=== PATIENT | male | born 1980 | race Caucasian/White ===

== ENCOUNTER 2016-10-15 08:22 | Emergency (ER) | payer OTHER ==
[2016-10-15 08:34] VITALS: BP 133/90
--- NOTE | 2016-10-15 08:43 | UC ---
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 [ End ] - History of Current Complaint Chief Complaint: Cortes Stated Complaint: RIGHT EYE COMPLAINT Time Seen by Provider: 10/15/16 08:42 Hx Obtained From: Patient Onset/Duration: Gradual Onset Timing: Constant Severity Initially: Moderate Severity Currently: Moderate Location of Injury: Eye Lid (upper) Character: Dull Aggravating Factor(s): Nothing Alleviating Factor(s): Nothing Associated Signs And Symptoms: Positive: Negative - Risk Factors Penetrating Injury Risk Factor: Negative Globe Rupture Risk Factors: Negative Acute Glaucoma Risk Factors: Negative - Allergies/Home Medications Allergies/Adverse Reactions: Allergies Allergy/AdvReac Type Severity Reaction Status Date / Time No Known Allergies Allergy Verified 10/15/16 08:34 PMH/Surg Hx/FS Hx/Imm Hx Previously Healthy: Yes Endocrine History Of: Denies: Thyroid Disease Cardiovascular History Of: Denies: Hypertension - Surgical History Surgical History: None - Family History Known Family History: Positive: None - Social History Occupation: Employed Full-time Lives: With Family Alcohol Use: Occasionally Substance Use Type: Marijuana Substance Use Comment - Amount & Last Used: Occasionally Smoking Status (MU): Never Smoked Tobacco - Immunization History Most Recent Influenza Vaccination: Not the Season Most Recent Tetanus Shot: May 2014 Review of Systems Constitutional: Negative Skin: Negative Eyes: Other - eye lid swelling ENT: Negative Respiratory: Negative Cardiovascular: Negative Gastrointestinal: Negative Genitourinary: Negative Motor: Negative Neurovascular: Negative Musculoskeletal: Negative Neurological: Negative Psychological: Negative All Other Systems Reviewed And Are Negative: Yes Physical Exam Triage Information Reviewed: Yes Appearance: Well-Appearing, No Pain Distress, Well-Nourished Vital Signs: Initial Vital Signs Temp 98.1 F 10/15/16 08:26 Pulse 72 10/15/16 08:26 Resp 18 10/15/16 08:26 BP 133/90 10/15/16 08:26 Vital Signs Reviewed: Yes Eye Exam: Other - EOMI and PERRLA Eyes: Positive: Conjunctiva Clear, Other: - upper eye lid swelling left eye. no discharge. no surrounding erythema ENT Exam: Normal Dental Exam: Normal Neck exam: Normal Respiratory Exam: Normal Cardiovascular Exam: Normal Abdominal Exam: Normal Musculoskeletal Exam: Normal Neurological Exam: Normal Psychological Exam: Normal Skin Exam: Normal Eye Complaint Course/Dx - Course Course Of Treatment: Spoke with him about histoplasmosis and other andrew concerns being surrounded by pigeons and their droppings at work and may bring this up with work . I advise going to Optho and f/u with PCP for further work up although it does not appear to be any systemic concerns at this time - Differential Dx/Diagnosis Differential Diagnosis/HQI/PQRI: Conjunctivitis, Other - blepharitis Provider Diagnoses: Blepharitis left eye Discharge - Discharge Plan Condition: Good Disposition: HOME Prescriptions: Azithromycin 100 MG/5 ML SUSP* [Zithromax SUSP* 100 MG/5 ML] 1 mg PO DAILY #1 btl Patient Education Materials: Blepharitis (ED) Referrals: No Primary Care Phys,NOPCP [Primary Care Provider] - 3 Days Ariel Farias [Medical Doctor] - 5 Days (Opthomology referral if your symptoms are not resolved ) Additional Instructions: As we discussed the pigeons present a potential source for infection and please see the specialist if your symptoms persist for your eye
== END 2016-10-15 09:12 | disposition home or self-care (01) ==
LOC: UCCORT 08:22
DX: H01.004 Unspecified blepharitis left upper eyelid (principal); F12.90 Cannabis use, unspecified, uncomplicated
CPT/HCPCS: 99212; G0463

== ENCOUNTER 2017-10-03 12:16 | Emergency (ER) | payer BC, OTHER ==
[2017-10-03 12:57] VITALS: BP 137/85
[2017-10-03] MEDS ORDERED: DOXYcycline CAP(*) 100 MG PO ONE (13:07)
--- NOTE | 2017-10-03 13:14 | ED ---
Skin Complaint - HPI Summary HPI Summary: 37 yr old male with tick bite to the right lateral hip area. The patient was out for a walk yesterday, and after the walk he pulled a tick off of his right hip area. No engorgement of the tick. No bulls eye rash to skin. No other complaints. - History of Current Complaint Chief Complaint: UCSkin Time Seen by Provider: 10/03/17 13:01 Stated Complaint: TICK BITE Pain Intensity: 0 - Allergy/Home Medications Allergies/Adverse Reactions: Allergies Allergy/AdvReac Type Severity Reaction Status Date / Time No Known Allergies Allergy Verified 10/03/17 12:52 Home Medications: Home Medications NK [No Home Medications Reported] 10/03/17 [History Confirmed 10/03/17] PMH/Surg Hx/FS Hx/Imm Hx Endocrine/Hematology History: Denies: Hx Thyroid Disease Cardiovascular History: Denies: Hx Hypertension Infectious Disease History: No Infectious Disease History: Denies: Traveled Outside the [place] in Last 30 Days - Family History Known Family History: Positive: None - Social History Alcohol Use: Occasionally Substance Use Type: Reports: Marijuana Substance Use Comment - Amount & Last Used: Occasionally- last used on weekend Smoking Status (MU): Never Smoked Tobacco Review of Systems Positive: Other - tick bite All Other Systems Reviewed And Are Negative: Yes Physical Exam Triage Information Reviewed: Yes Vital Signs On Initial Exam: Initial Vitals Temp Pulse Resp BP Pulse Ox 97.8 F 50 18 137/85 100 10/03/17 12:52 10/03/17 12:52 10/03/17 12:52 10/03/17 12:52 10/03/17 12:52 Vital Signs Reviewed: Yes Appearance: Positive: Well-Appearing, No Pain Distress Skin: Positive: Warm, Other - small bite michelle without any appreciable redness or swelling over the right hip area. Head/Face: Positive: Normal Head/Face Inspection ENT: Positive: Normal ENT inspection Respiratory/Lung Sounds: Positive: Clear to Auscultation, Breath Sounds Present Cardiovascular: Positive: RRR. Negative: Murmur Abdomen Description: Positive: Nontender Musculoskeletal: Positive: Strength/ROM Intact Neurological: Positive: Sensory/Motor Intact, Alert, Oriented to Person Place, Time, CN Intact II-III - Yulissa Coma Scale Best Eye Response: 4 - Spontaneous Best Motor Response: 6 - Obeys Commands Best Verbal Response: 5 - Oriented Coma Scale Total: 15 Diagnostics - Vital Signs Vital Signs Temp Pulse Resp BP Pulse Ox 10/03/17 12:52 97.8 F 50 18 137/85 100 - Laboratory Lab Statement: Any lab studies that have been ordered have been reviewed, and results considered in the medical decision making process. Course/Dx - Course Course Of Treatment: 37 yr old who pulled off tick. he would like the prophylaxis. Doxy 200 mg ordered. - Diagnoses Provider Diagnoses: Tick bite Discharge - Sign-Out/Discharge Documenting (check all that apply): Discharge/Admit/Transfer - Discharge Plan Condition: Good Disposition: HOME Patient Education Materials: Tick Bite (ED) Referrals: [facility] [[facility]] No Primary Care Phys,NOPCP [Primary Care Provider] - - Billing Disposition and Condition Condition: GOOD Disposition: HOME
== END 2017-10-03 13:18 | disposition home or self-care (01) ==
LOC: UCCORT 12:16
DX: S70.361A Insect bite (nonvenomous), right thigh, initial encounter (principal); W57.XXXA Bitten or stung by nonvenomous insect and other nonvenomous arthropods, initial encounter
CPT/HCPCS: 99211; A9270-GY; G0463

== ENCOUNTER 2018-09-17 07:53 | Emergency (ER) | payer BC ==
[2018-09-17 08:19] VITALS: BP 123/73
--- NOTE | 2018-09-17 08:38 | UC ---
Skin Complaint HPI - HPI Summary HPI Summary: 38 yo male s/p tick removal from right abdomen yesterday tick did not appear engorged - History of Current Complaint Chief Complaint: UCSkin Time Seen by Provider: 09/17/18 08:29 Stated Complaint: TICK BITE Hx Obtained From: Patient Onset/Duration: Gradual Onset, Lasting Hours Timing: Constant Current Severity: Mild Pain Intensity: 0 Pain Scale Used: 0-10 Numeric Location: Other - abd Aggravating Factor(s): Nothing Alleviating Factor(s): Nothing Associated Signs & Symptoms: Positive: Negative - Allergy/Home Medications Allergies/Adverse Reactions: Allergies Allergy/AdvReac Type Severity Reaction Status Date / Time No Known Allergies Allergy Verified 09/17/18 08:15 Home Medications: Home Medications Multivitamin [Multivitamins] 1 cap PO DAILY 09/17/18 [History Confirmed 09/17/18 ] PMH/Surg Hx/FS Hx/Imm Hx Previously Healthy: Yes - Surgical History Surgical History: None - Family History Known Family History: Positive: Non-Contributory - Social History Alcohol Use: Occasionally Substance Use Type: Marijuana Substance Use Comment - Amount & Last Used: occasional Smoking Status (MU): Never Smoked Tobacco - Immunization History Most Recent Influenza Vaccination: Not the Season Most Recent Tetanus Shot: May 2014 Review of Systems All Other Systems Reviewed And Are Negative: Yes Constitutional: Positive: Negative Skin: Positive: Negative Eyes: Positive: Negative ENT: Positive: Negative Respiratory: Positive: Negative Cardiovascular: Positive: Negative Gastrointestinal: Positive: Negative Genitourinary: Positive: Negative Motor: Positive: Negative Neurovascular: Positive: Negative Musculoskeletal: Positive: Negative Neurological: Positive: Negative Psychological: Positive: Negative Physical Exam Triage Information Reviewed: Yes Appearance: Well-Appearing, No Pain Distress, Well-Nourished Vital Signs: Initial Vital Signs Temp 97.8 F 09/17/18 08:12 Pulse 54 09/17/18 08:12 Resp 15 09/17/18 08:12 BP 123/73 09/17/18 08:12 Pulse Ox 99 09/17/18 08:12 Vital Signs Reviewed: Yes Eyes: Positive: Conjunctiva Clear ENT: Positive: Hearing grossly normal. Negative: Nasal congestion, Nasal drainage, Trismus, Muffled voice, Hoarse voice Neck: Positive: Supple, Nontender, No Lymphadenopathy Respiratory: Positive: Lungs clear, Normal breath sounds, No respiratory distress, No accessory muscle use Cardiovascular: Positive: RRR, No Murmur, Pulses Normal Musculoskeletal: Positive: ROM Intact, No Edema Neurological: Positive: Alert Psychological Exam: Normal Skin Exam: Other - see image Images Front/Back of Body, Lg ([place]): 1 - tick bite Course/Dx - Diagnoses Provider Diagnosis: Tick bite of abdomen Discharge - Sign-Out/Discharge Documenting (check all that apply): Patient Departure All imaging exams completed and their final reports reviewed: No Studies - Discharge Plan Condition: Stable Disposition: HOME Prescriptions: DOXYcycline CAP(*) [DOXYcycline 100MG CAP(*)] 200 mg PO BID #2 cap Patient Education Materials: Tick Bite (ED) Referrals: No Primary Care Phys,NOPCP [Primary Care Provider] - Additional Instructions: call for any questions return for any problems - Billing Disposition and Condition Condition: STABLE Disposition: Home
== END 2018-09-17 08:43 | disposition home or self-care (01) ==
LOC: UCCORT 07:53
DX: S30.861A Insect bite (nonvenomous) of abdominal wall, initial encounter (principal); W57.XXXA Bitten or stung by nonvenomous insect and other nonvenomous arthropods, initial encounter; Y92.9 Unspecified place or not applicable
CPT/HCPCS: 99212; G0463

== ENCOUNTER 2018-10-23 07:07 | Emergency (ER) | payer BC ==
[2018-10-23 07:22] VITALS: BP 148/88
--- NOTE | 2018-10-23 07:39 | UC ---
Ear Complaint HPI - HPI Summary HPI Summary: 38 yo with decreased hearing, bilateral otorrhea, ear pain and URI symptoms x 1 week generally healthy no ear problems since a child - History of Current Complaint Chief Complaint: UCEar Stated Complaint: BI LAT EAR PAIN Time Seen by Provider: 10/23/18 07:33 Hx Obtained From: Patient Onset/Duration: Gradual Onset, Lasting Days Severity Initially: Mild Severity Currently: Moderate Pain Intensity: 7 Pain Scale Used: 0-10 Numeric Aggravating Factors: Nothing Alleviating Factors: Nothing Associated Signs/Symptoms: Positive: Discharge, Hearing Loss, URI Symptoms - Allergies/Home Medications Allergies/Adverse Reactions: Allergies Allergy/AdvReac Type Severity Reaction Status Date / Time No Known Allergies Allergy Verified 10/23/18 07:13 Home Medications: Home Medications Ibuprofen TAB* [Advil TAB*] 600 mg PO Q6H PRN 10/23/18 [History Confirmed ] Otc Pain And Sinus Med PRN 10/23/18 [History] PMH/Surg Hx/FS Hx/Imm Hx Previously Healthy: Yes - Surgical History Surgical History: None - Family History Known Family History: Positive: Other - dad with hearing loss Negative: Hypertension, Diabetes - Social History Alcohol Use: Occasionally Substance Use Type: Marijuana Substance Use Comment - Amount & Last Used: occasional Smoking Status (MU): Never Smoked Tobacco - Immunization History Most Recent Influenza Vaccination: Not the Season Most Recent Tetanus Shot: May 2014 Review of Systems All Other Systems Reviewed And Are Negative: Yes Constitutional: Positive: Fever - low grade Skin: Positive: Negative Eyes: Positive: Negative ENT: Positive: Ear Ache, Nasal Discharge, Sinus Congestion Respiratory: Positive: Negative Cardiovascular: Positive: Negative Gastrointestinal: Positive: Negative Genitourinary: Positive: Negative Motor: Positive: Negative Neurovascular: Positive: Negative Musculoskeletal: Positive: Negative Neurological: Positive: Negative Psychological: Positive: Negative Physical Exam Triage Information Reviewed: Yes Appearance: Well-Appearing, No Pain Distress, Well-Nourished Vital Signs: Initial Vital Signs Temp 98.1 F 10/23/18 07:16 Pulse 61 10/23/18 07:16 Resp 18 10/23/18 07:16 BP 148/88 10/23/18 07:16 Pulse Ox 99 10/23/18 07:16 Vital Signs Reviewed: Yes Eyes: Positive: Conjunctiva Clear ENT: Positive: Nasal congestion, TM bulging, Tonsillar swelling, Uvula midline. Negative: Hearing grossly normal - decreased R>L, TMs normal, Tonsillar exudate, Trismus, Muffled voice, Hoarse voice, Sinus tenderness Dental Exam: Normal Neck: Positive: Nontender, No Lymphadenopathy Respiratory: Positive: Lungs clear, Normal breath sounds, No respiratory distress Cardiovascular: Positive: RRR, No Murmur Musculoskeletal: Positive: ROM Intact, No Edema Neurological: Positive: Alert Psychological Exam: Normal Skin Exam: Normal Ear Complaint Course/Dx - Differential Dx/Diagnosis Provider Diagnosis: Bilateral acute suppurative otitis media, Elevated BP without diagnosis of hypertension Discharge - Sign-Out/Discharge Documenting (check all that apply): Patient Departure All imaging exams completed and their final reports reviewed: No Studies - Discharge Plan Condition: Stable Disposition: HOME Prescriptions: Amoxicillin PO (*) [Amoxicillin 875 MG (*)] 875 mg PO BID #20 tab Patient Education Materials: Ear Infection (ED) Referrals: No Primary Care Phys,NOPCP [Primary Care Provider] - Additional Instructions: Your BP is high and needs follow up You should get a primary care provider put nothing in ears recheck for worsening symptoms ear recheck in 2-3 weeks if hearing not back to normal - Billing Disposition and Condition Condition: STABLE Disposition: Home
== END 2018-10-23 07:50 | disposition home or self-care (01) ==
LOC: UCCORT 07:07
DX: H66.003 Acute suppurative otitis media without spontaneous rupture of ear drum, bilateral (principal); R03.0 Elevated blood-pressure reading, without diagnosis of hypertension
CPT/HCPCS: 99212; G0463